=== PATIENT | female | born 1945 | race African-American/Black ===

== ENCOUNTER → 2018-02-20 | Outpatient (CLI) | payer OTHER ==
[~2018-02-20] VITALS: Ht 172.7 cm; Wt 82.6 kg
[~2018-02-20] MED LIST: AMANTADINE 100100 MG PO; AMLODIPINE BESY10 MG PO; AUBAGIO14 MG PO; COMPAZINE10 MG PO; COREG25 MG PO; IPRAT-ALBUT 0.5-3 ML INH; KEPPRA 500 MG500 M1 PO; LASIX 40 MG TAB40 M2 PO; LEVEMIR SUBQ; MS CONTIN15 MG PO; NORTRIPTYLINE H25 M3 PO; PERCOCET PO; POTASSIUM20 PO; PROTONIX40 M1 PO; PROVIGIL 200 M200 M1 PO; RIZATRIPTAN10 MG PO; TRELEGY ELLIPT1 EACH INH; TRULICITY1.5 MG/0.5 SUBQ; VITAMIN D2000 UNIT PO
--- NOTE | ~2018-02-20 | PATH ---
[facility] [place] [address] PATHOLOGY RPT PROCEDURE Name: KARINE BRYANT DIDIER Room #: REG TRAVON Holden.#: [id number] Admission: 02/20/18 Date of : 43 Discharge: Report #: [id number] Path Case #: [id number] [facility] Accession Number: [id number] . 01 Material submitted: . PART A: DUODENAL BX PART B: ANTRUM . 01 Clinical history: . Pre-OP DX: Diffuse abd p Post-OP DX: Hiatal hernia . 02 Diagnosis: A. Small bowel mucosa, duodenal, endoscopic biopsy: - No diagnostic abnormalities. - Negative for villous blunting or increase in intraepithelial lymphocytes. . B. Gastric mucosa, antrum, endoscopic biopsy: - Mild reactive gastropathy. - Negative for intestinal metaplasia or atrophy. - Negative for Helicobacter pylori (properly controlled immunohistochemical stain performed). . 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 02 Electronically signed: . Sandra Gonzalez MD, Pathologist NPI- [id number] . 01 Gross description: . A. Received in formalin labeled "Karine Bryant, duodenal BX," is a single segment of zapata soft tissue measuring 0.4 cm in maximum dimension. The specimen is entirely submitted in cassette A1. . B. Received in formalin labeled "Karine Bryant, antrum BX," are 2 segments of zapata soft tissue measuring 0.8 x 0.2 x 0.2 cm in aggregate dimensions and ranging from 0.3 to 0.5 cm in maximum dimension. The specimen is submitted entirely in cassette B1. (TSD; 02/20/2018) TOB/TOB . 02 Pathologist provided ICD-10: K31.9, R10.9 . 02 [place] [address] PATHOLOGY RPT PROCEDURE Name: KARINE BRYANT Room #: REG CLI MR.#: [id number] Admission: 02/20/18 Date of : 43 Discharge: Report #: [id number] Path Case #: [id number] Specimen Comment: A courtesy copy of this report has been sent to Specimen Comment: [phone], . Specimen Comment: Report sent to / DR GINGER Specimen Comment: A duplicate report has been generated due to demographic updates. Performed at: [address] [facility], [place], [place] [id number] MD Gunnar Tobin MD Phone: [phone] Performed at: [address] [facility] [id number] MD Sandra Gonzalez MD Phone: [phone]
== END | disposition home or self-care (01) ==
LOC: GI 08:38
DX: K31.89 Other diseases of stomach and duodenum (principal); K22.2 Esophageal obstruction; K44.9 Diaphragmatic hernia without obstruction or gangrene; I10 Essential (primary) hypertension; E78.00 Pure hypercholesterolemia, unspecified; I25.2 Old myocardial infarction; E11.9 Type 2 diabetes mellitus without complications; K21.9 Gastro-esophageal reflux disease without esophagitis; G35 Multiple sclerosis; J45.909 Unspecified asthma, uncomplicated; Z88.0 Allergy status to penicillin; Z90.710 Acquired absence of both cervix and uterus; Z98.890 Other specified postprocedural states; Z95.4 Presence of other heart-valve replacement; Z79.4 Long term (current) use of insulin; Z79.899 Other long term (current) drug therapy